=== PATIENT | female | born 1955 | race Caucasian/White ===

== ENCOUNTER 2020-03-14 17:35 | Emergency (ER) | payer MEDICARE, MEDICAID ==
[~2020-03-14] VITALS: Ht 154.9 cm; Wt 72.7 kg
[~2020-03-14 17:35] MED LIST: CYCL-1 PO; DIAZ5TAB PO; PHEN-716 PO
[2020-03-14 17:42] VITALS: BP 138/90
[2020-03-14] MEDS ORDERED: IBUP-1984 PO (18:48)
[2020-03-14] MEDS ORDERED: ibuprofen tablet 400 MG TABLET PO ONE (18:50)
== END 2020-03-16 | disposition home or self-care (01) ==
LOC: ER 03-16 17:35
DX: M10.9 Gout, unspecified (principal); M79.675 Pain in left toe(s); E78.00 Pure hypercholesterolemia, unspecified; I10 Essential (primary) hypertension; J44.9 Chronic obstructive pulmonary disease, unspecified; M19.90 Unspecified osteoarthritis, unspecified site; G89.29 Other chronic pain; F12.90 Cannabis use, unspecified, uncomplicated; Z98.51 Tubal ligation status; Z98.890 Other specified postprocedural states; Z85.3 Personal history of malignant neoplasm of breast; Z88.8 Allergy status to other drugs, medicaments and biological substances; Z88.5 Allergy status to narcotic agent; Z79.899 Other long term (current) drug therapy
CPT/HCPCS: 73660; 99283

== ENCOUNTER 2020-04-29 14:49 | Emergency (ER) | payer BC, MEDICAID ==
[~2020-04-29] VITALS: Ht 154.9 cm; Wt 70.9 kg
[2020-04-29 15:18] VITALS: BP 126/76
[2020-04-29] MEDS ORDERED: ketorolac trometh. 30mg/ml inj. IM ONE (16:20)
[2020-04-29] MEDS ORDERED: diphenhydrAMINE 25mg capsule PO ONE (16:20)
[2020-04-29] MEDS ORDERED: HYDROcodone/acetaminophen 10/325mg tab PO ONE (16:20)
[2020-04-29] MEDS ORDERED: cyclobenzaprine 10mg tablet PO ONE (16:20)
[2020-04-29] MEDS ORDERED: ketorolac trometh inj. 60 MG/2 ML VIAL IM ONE (16:20)
== END 2020-04-29 17:07 | disposition home or self-care (01) ==
LOC: ER 14:49
DX: G89.29 Other chronic pain (principal); M54.32 Sciatica, left side; E78.00 Pure hypercholesterolemia, unspecified; I10 Essential (primary) hypertension; J44.9 Chronic obstructive pulmonary disease, unspecified; M19.90 Unspecified osteoarthritis, unspecified site; F12.90 Cannabis use, unspecified, uncomplicated; Z85.3 Personal history of malignant neoplasm of breast; Z87.440 Personal history of urinary (tract) infections; Z98.51 Tubal ligation status; Z98.890 Other specified postprocedural states; Z88.5 Allergy status to narcotic agent; Z79.899 Other long term (current) drug therapy
CPT/HCPCS: 96372; 99284; J1885; Q0163

== ENCOUNTER 2020-05-02 07:08 | Emergency (ER) | payer BC, MEDICAID ==
[~2020-05-02] VITALS: Ht 160 cm; Wt 69.5 kg
[2020-05-02 07:28] VITALS: BP 125/84
[2020-05-02] MEDS ORDERED: dexamethasone 4mg tablet PO ONE (07:45)
[2020-05-02] MEDS ORDERED: ketorolac tromethamine 15mg/ml inj. IM ONE (07:45)
[2020-05-02] MEDS ORDERED: DIAZ-351 PO (08:22)
[2020-05-02] MEDS ORDERED: PRED20TA PO (08:22)
[2020-05-02] MEDS ORDERED: METH-360 PO (08:22)
--- NOTE | 2020-05-02 09:33 | NUR ---
RIDE IS HERE TO TAKE PT HOME
== END 2020-05-02 09:34 | disposition home or self-care (01) ==
LOC: ER 07:09
DX: S39.012A Strain of muscle, fascia and tendon of lower back, initial encounter (principal); M54.42 Lumbago with sciatica, left side; E78.00 Pure hypercholesterolemia, unspecified; I10 Essential (primary) hypertension; J44.9 Chronic obstructive pulmonary disease, unspecified; G89.29 Other chronic pain; M19.90 Unspecified osteoarthritis, unspecified site; F12.90 Cannabis use, unspecified, uncomplicated; Z85.9 Personal history of malignant neoplasm, unspecified; Z98.51 Tubal ligation status; Z98.890 Other specified postprocedural states; Z88.5 Allergy status to narcotic agent; Z88.8 Allergy status to other drugs, medicaments and biological substances; Z79.899 Other long term (current) drug therapy; X58.XXXA Exposure to other specified factors, initial encounter; Y93.89 Activity, other specified; Y92.89 Other specified places as the place of occurrence of the external cause; Y99.8 Other external cause status
CPT/HCPCS: 96372; 99284; J1885

== ENCOUNTER 2021-01-25 13:07 | Emergency (ER) | payer MEDICARE, MEDICAID ==
[~2021-01-25] VITALS: Ht 154.9 cm; Wt 67.9 kg
[~2021-01-25 13:07] MED LIST changes: +ALBU18HF2 INH; +ANAS1TAB10 PO; +ATOR10TA70 PO; +CHOL20002 PO; -CYCL-1 PO; -DIAZ5TAB PO; +DIAZ5TAB5 PO; +FURO20TA4 PO; +GABA300C PO; +MAGN64TA10 PO; +METH-798 PO; +PANT40TA54 PO; -PHEN-716 PO; +POTA8CAP20 PO; +SPIR50TA5 PO; +[UNRECOGNIZED DRUG - CODE] PO
[2021-01-25 13:39] VITALS: BP 126/88
[2021-01-25] MEDS ORDERED: ketorolac tromethamine 15mg/ml inj. IM ONE (15:55)
[2021-01-25] MEDS ORDERED: IBUP-1986 PO (17:05)
== END 2021-01-25 17:23 | disposition home or self-care (01) ==
LOC: ER 13:08
DX: M25.562 Pain in left knee (principal); M10.9 Gout, unspecified; E78.00 Pure hypercholesterolemia, unspecified; M19.90 Unspecified osteoarthritis, unspecified site; G89.29 Other chronic pain; Z85.3 Personal history of malignant neoplasm of breast; F12.90 Cannabis use, unspecified, uncomplicated; I10 Essential (primary) hypertension; J44.9 Chronic obstructive pulmonary disease, unspecified; Z87.440 Personal history of urinary (tract) infections; Z91.018 Allergy to other foods; Z88.8 Allergy status to other drugs, medicaments and biological substances; Z79.899 Other long term (current) drug therapy; Z98.51 Tubal ligation status
CPT/HCPCS: 73564; 96372; 99283; J1885